=== PATIENT | male | born 1940 | race Caucasian/White ===

== ENCOUNTER → 2017-10-21 | Outpatient (CLI) | payer MEDICARE ==
[~2017-10-21] MED LIST: AMLO5TAB2 PO; AMOX500T PO; ASCO500T12 PO; ASPI-496 PO; CLAR500T3 PO; METF500T4 PO; OMEP-110 PO; PRAV40TA2 PO; VALS1TAB30 PO
== END | disposition home or self-care (01) ==
LOC: RAD 12:35
PROVIDERS: ATTEND Internal Medicine Cardiovascular Disease
DX: I10 Essential (primary) hypertension (principal); R06.02 Shortness of breath
CPT/HCPCS: 78452; 93017; A9502

== ENCOUNTER → 2020-10-23 | Outpatient (CLI) | payer MEDICARE ==
[~2020-10-23] MED LIST changes: +AMLO-150 PO; -AMLO5TAB2 PO; -ASCO500T12 PO; +ASCO500T93 PO; +METF500T17 PO; -METF500T4 PO
== END | disposition home or self-care (01) ==
LOC: CVU 13:12
PROVIDERS: ATTEND Internal Medicine Cardiovascular Disease
DX: I08.0 Rheumatic disorders of both mitral and aortic valves (principal); I10 Essential (primary) hypertension
CPT/HCPCS: 93306; 93356